=== PATIENT | female | born 1990 | race Caucasian/White ===

== ENCOUNTER 2016-10-09 | Outpatient (CLI) | payer BC, MEDICAID | END 2016-10-09 17:20 | disposition critical access hospital (66) | CPT/HCPCS: A0425; A0429 ==

== ENCOUNTER 2016-10-09 17:24 | Emergency (ER) | payer OTHER, BC | END 2016-10-09 22:09 | disposition home or self-care (01) | DX: R51 Headache (principal); F99 Mental disorder, not otherwise specified; F17.200 Nicotine dependence, unspecified, uncomplicated ==